=== PATIENT | male | born 1990 | race African-American/Black ===

== ENCOUNTER 2021-02-14 10:32 | Emergency (ER) | payer OTHER ==
[~2021-02-14] VITALS: Ht 175.3 cm; Wt 127.0 kg
[2021-02-14 11:58] LABS: ABSOLUTE EOSINOPHILS 0.4 thou/uL (0.0-0.7); ABSOLUTE LYMPHOCYTES 1.7 thou/uL (0.8-5.3); ABSOLUTE MONOCYTES 0.7 thou/uL (0.0-1.2); ABSOLUTE NEUTROPHILS 4.7 thou/uL (1.6-8.1); BASOPHILS 0.5 %; EOSINOPHILS 4.7 %; HEMATOCRIT 41.9 % (42.0-52.0); HEMOGLOBIN 13.5 gm/dL (14.0-18.0); LYMPHOCYTES 22.5 %; MCH 26.7 pg (26.0-34.0); MCHC 32.2 g/dL (28.0-37.0); MONOCYTES 9.6 %; MPV 9.4 fl. (7.2-11.1); NUCLEATED RBCS 0 /100WBC; PLATELET COUNT* 233 thou/uL (150-400); POLYS 62.7 %; RBC 5.04 mil/uL (4.50-6.00); RDW-CV 13.1 % (10.5-14.5); WBC 7.5 thou/uL (4.0-11.0)
[2021-02-14 12:01] LABS: CALCIUM 8.8 mg/dL (8.5-10.1); CREATININE 1.1 mg/dL (0.6-1.3)
[2021-02-14 12:11] LABS: ALBUMIN 3.9 g/dL (3.4-5.0); MAGNESIUM 2.1 mg/dL (1.8-2.4); TOTAL BILIRUBIN 0.6 mg/dL (<0.1-1.0); TOTAL PROTEIN 7.9 g/dL (6.4-8.2)
[2021-02-14 12:32] VITALS: BP 138/75
--- NOTE | 2021-02-14 15:31 | EKG ---
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: : 1990 Requested By: Phil Mosley Order Number: [id number] MD: Jameson Roberto Measurements Intervals [place] Rate: 66 P: 44 VA: 158 QRS: 74 QRSD: 93 T: 23 QT: 364 QTc: 382 Interpretive Statements Sinus rhythm ST elev, probable normal early repol pattern Baseline wander in lead(s) V6 No previous ECG available for comparison Electronically Signed On 02-14-2021 15:31:16 [employer]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
== END 2021-02-14 12:34 | disposition home or self-care (01) ==
LOC: M.ERS 10:32
PROVIDERS: Family Medicine
DX: R07.89 Other chest pain (principal)